=== PATIENT | male | born 1995 | race Hispanic/Latino ===

== ENCOUNTER 2021-10-12 20:24 | Inpatient (IN) | payer OTHER, SELFPAY ==
[~2021-10-12 20:24] MED LIST: Iopamidol-370 76% 500 ML 1 ML ONE
[2021-10-12 21:23] LABS: #Lymphocytes 1.1 thou/uL (1.20-3.40); #Monocytes 0.2 thou/uL (0.11-0.59); #Neutrophils 7.3 thou/uL (1.40-6.50); %Basophils 0.4 % (0.0-1.0); %Eosinophils 0.1 % (0.0-10.0); %Lymphocytes 12.7 % (21.0-51.0); %Monocytes 2.3 % (0.0-10.0); %Neutrophils 84.5 % (42.0-75.0); Hemoglobin 13.7 g/dL (14.0-18.0); Mean Corpuscular Hemoglobin 29.6 pg (27.0-31.0); Mean Corpuscular Volume 87.1 fL (78.0-98.0); Mean Platelet Volume 7.9 fL (7.4-10.4); Platelet Count 208 thou/uL (130-400); RBC Distribution Width 12.5 % (11.5-14.5); Red Blood Cell (RBC) Count 4.63 mill/uL (4.70-6.10); White Blood Cell (WBC) Count 8.7 thou/uL (4.8-10.8)
[2021-10-12 21:44] LABS: ALT (SGPT) 57 U/L (8-55); AST (SGOT) 88 U/L (5-34); Albumin 3.6 g/dL (3.5-5.0); Alkaline Phosphatase 62 U/L (40-110); Anion Gap 14 mmol/L (10-20); BUN (Urea Nitrogen) 6 mg/dL (8.9-20.6); Bilirubin, Total 0.6 mg/dL (0.2-1.2); Calc. Creatinine Clearance 0 mL/min (70-130); Calcium 8.9 mg/dL (7.8-10.44); Carbon Dioxide 29 mmol/L (22-29); Chloride 97 mmol/L (98-107); Glucose 107 mg/dL (70-105); Lipase 19 U/L (8-78); Potassium 3.7 mmol/L (3.5-5.1); Protein, Total 7.6 g/dL (6.0-8.3); Sodium 136 mmol/L (136-145)
[2021-10-12] MEDS ORDERED: Acetaminophen 500 MG TAB ONE (21:50)
[2021-10-12 22:04] LABS: CKMB 2.7 ng/mL (0-6.6)
[2021-10-12] MEDS ORDERED: Aspirin 325 MG TAB ONE (22:05)
[2021-10-12 23:07] LABS: SARS-CoV-2 NAA Rapid Test DETECTED (NotDetected)
[2021-10-12] MEDS ORDERED: Dexamethasone 4 MG TAB ONE (23:24)
[2021-10-12] MEDS ORDERED: Albuterol Sulfate 2.5 mg/3 ml Neb NEB PRN (23:46)
[2021-10-12] MEDS ORDERED: Nitroglycerin 0.4 MG TAB (25 Tab Bottle) SL PRN (23:46)
[2021-10-12] MEDS ORDERED: Ondansetron ODT 4 MG TAB PO PRN (23:51)
[2021-10-12] MEDS ORDERED: Senokot S 8.6-50 MG TAB PO PRN (23:51)
[2021-10-12] MEDS ORDERED: Ondansetron PF 4 MG/2 ML Vial IVP PRN (23:51)
[2021-10-12] MEDS ORDERED: Acetaminophen 325 MG TAB PO PRN (23:51)
[2021-10-13 00:54] VITALS: BMI 42.5
[2021-10-13] MEDS: Sodium Chloride 0.9% 1,000 ML IV SCH ×3 (01:00→22:48)
[2021-10-13 01:17] LABS: Troponin I 0.021 ng/mL (< 0.028)
[2021-10-13] MEDS: Benzonatate 100 MG CAP PO PRN (01:20)
[2021-10-13 03:26] LABS: #Basophils 0.1 thou/uL (0.0-0.2); #Lymphocytes 0.7 thou/uL (1.20-3.40); #Monocytes 0.1 thou/uL (0.11-0.59); #Neutrophils 7.7 thou/uL (1.40-6.50); %Basophils 0.8 % (0.0-1.0); %Eosinophils 0.1 % (0.0-10.0); %Monocytes 1.5 % (0.0-10.0); %Neutrophils 89.7 % (42.0-75.0); Hemoglobin 13.5 g/dL (14.0-18.0); Mean Corpuscular HGB CONC 33.1 g/dL (32.0-36.0); Mean Corpuscular Hemoglobin 29.2 pg (27.0-31.0); Mean Corpuscular Volume 88.2 fL (78.0-98.0); Mean Platelet Volume 7.8 fL (7.4-10.4); Platelet Count 211 thou/uL (130-400); RBC Distribution Width 12.6 % (11.5-14.5); Red Blood Cell (RBC) Count 4.61 mill/uL (4.70-6.10); White Blood Cell (WBC) Count 8.6 thou/uL (4.8-10.8)
[2021-10-13 03:45] LABS: Anion Gap 14 mmol/L (10-20); BUN (Urea Nitrogen) 7 mg/dL (8.9-20.6); Calc. Creatinine Clearance 268 mL/min (70-130); Calcium 8.8 mg/dL (7.8-10.44); Carbon Dioxide 28 mmol/L (22-29); Chloride 100 mmol/L (98-107); Glucose 108 mg/dL (70-105); Potassium 3.5 mmol/L (3.5-5.1); Sodium 138 mmol/L (136-145)
[2021-10-13 03:50] LABS: Troponin I 0.013 ng/mL (< 0.028)
[2021-10-13 04:19] LABS: Bacteria/HPF None Seen HPF (None Seen); Bilirubin Negative (Negative); Blood, Urine Negative (Negative); Clarity Clear (Clear); Glucose, Urine (Dipstick) Normal (Negative); Ketone, Urine Trace mg/dL (Negative); Leukocyte Negative Leu/uL (Negative); Nitrite Negative (Negative); Protein, Urine (Dipstick) Negative (Neg-Trace); RBC/HPF 0-3 HPF (0-3); Specific Gravity, Urine 1.027 (1.002-1.036); Squamous Epithelial None Seen HPF (0-3); Urobilinogen Normal mg/dL (Less than 2); WBC/HPF 0-3 HPF (0-3); pH, Urine 6.5 (5.0-9.0)
[2021-10-13 04:34] LABS: Urine Culture Reflex No No
[2021-10-13] MEDS: Enoxaparin Sodium 40 MG/0.4 ML SYRINGE SC SCH (08:27)
[2021-10-13] MEDS: Dexamethasone 4 MG TAB PO SCH ×2 (08:28→17:29)
[2021-10-13] MEDS: Zinc Sulfate 220 MG CAP PO SCH (08:29)
[2021-10-13] MEDS: Ascorbic Acid 500 mg Chewable Tablet PO SCH (08:29)
[2021-10-13] MEDS ORDERED: REMDESIVIR 200 MG in Sodium Chloride 0.9% 250 ML 210 ML IV SCH (08:30)
[2021-10-13] MEDS ORDERED: guaiFENesin/Codeine 200 mg/20 mg 10 ml Cup PO SCH (13:15)
[2021-10-13] MEDS: guaiFENesin/Codeine 200 mg/20 mg 10 ml Cup PO PRN (20:34)
[2021-10-14] MEDS: guaiFENesin/Codeine 200 mg/20 mg 10 ml Cup PO PRN (05:33)
[2021-10-14 06:05] LABS: ALT (SGPT) 101 U/L (8-55); AST (SGOT) 123 U/L (5-34); Albumin 3.2 g/dL (3.5-5.0); Alkaline Phosphatase 63 U/L (40-110); Anion Gap 13 mmol/L (10-20); BUN (Urea Nitrogen) 12 mg/dL (8.9-20.6); Bilirubin, Total 0.4 mg/dL (0.2-1.2); Calc. Creatinine Clearance 277 mL/min (70-130); Calcium 8.7 mg/dL (7.8-10.44); Carbon Dioxide 27 mmol/L (22-29); Chloride 103 mmol/L (98-107); Globulin 3.8 g/dL (2.4-3.5); Glucose 163 mg/dL (70-105); Potassium 3.9 mmol/L (3.5-5.1); Sodium 139 mmol/L (136-145)
[2021-10-14] MEDS: Enoxaparin Sodium 40 MG/0.4 ML SYRINGE SC SCH (09:21)
[2021-10-14] MEDS: Zinc Sulfate 220 MG CAP PO SCH (09:22)
[2021-10-14] MEDS: Dexamethasone 4 MG TAB PO SCH ×2 (09:22→16:40)
[2021-10-14] MEDS: Ascorbic Acid 500 mg Chewable Tablet PO SCH (09:23)
[2021-10-14] MEDS: REMDESIVIR 100 MG in Sodium Chloride 0.9% 250 ML 230 ML IV SCH (09:24)
[2021-10-15 05:27] LABS: ALT (SGPT) 146 U/L (8-55); AST (SGOT) 115 U/L (5-34); Albumin 3.3 g/dL (3.5-5.0); Alkaline Phosphatase 64 U/L (40-110); Anion Gap 12 mmol/L (10-20); BUN (Urea Nitrogen) 14 mg/dL (8.9-20.6); Bilirubin, Total 0.4 mg/dL (0.2-1.2); CRP (Inflammatory) 7.08 mg/dL (= or < 0.5); Calc. Creatinine Clearance 281 mL/min (70-130); Calcium 8.8 mg/dL (7.8-10.44); Carbon Dioxide 30 mmol/L (22-29); Chloride 104 mmol/L (98-107); Globulin 3.6 g/dL (2.4-3.5); Glucose 172 mg/dL (70-105); Potassium 3.7 mmol/L (3.5-5.1); Protein, Total 6.9 g/dL (6.0-8.3); Sodium 142 mmol/L (136-145)
[2021-10-15] MEDS: Zinc Sulfate 220 MG CAP PO SCH (07:49)
[2021-10-15] MEDS: Dexamethasone 4 MG TAB PO SCH ×2 (07:49→16:46)
[2021-10-15] MEDS: Ascorbic Acid 500 mg Chewable Tablet PO SCH (07:50)
[2021-10-15] MEDS: Enoxaparin Sodium 40 MG/0.4 ML SYRINGE SC SCH (07:50)
[2021-10-15] MEDS: REMDESIVIR 100 MG in Sodium Chloride 0.9% 250 ML 230 ML IV SCH (09:02)
[2021-10-15] MEDS: guaiFENesin/Codeine 200 mg/20 mg 10 ml Cup PO PRN ×2 (09:02→20:21)
[2021-10-16 05:54] LABS: ALT (SGPT) 121 U/L (8-55); AST (SGOT) 48 U/L (5-34); Albumin 3.1 g/dL (3.5-5.0); Alkaline Phosphatase 61 U/L (40-110); Anion Gap 11 mmol/L (10-20); BUN (Urea Nitrogen) 16 mg/dL (8.9-20.6); Bilirubin, Total 0.4 mg/dL (0.2-1.2); CRP (Inflammatory) 3.79 mg/dL (= or < 0.5); Calc. Creatinine Clearance 281 mL/min (70-130); Calcium 8.6 mg/dL (7.8-10.44); Carbon Dioxide 28 mmol/L (22-29); Chloride 104 mmol/L (98-107); Globulin 3.6 g/dL (2.4-3.5); Glucose 180 mg/dL (70-105); Protein, Total 6.7 g/dL (6.0-8.3); Sodium 139 mmol/L (136-145)
[2021-10-16] MEDS: Zinc Sulfate 220 MG CAP PO SCH (08:25)
[2021-10-16] MEDS: Ascorbic Acid 500 mg Chewable Tablet PO SCH (08:25)
[2021-10-16] MEDS: REMDESIVIR 100 MG in Sodium Chloride 0.9% 250 ML 230 ML IV SCH (08:25)
[2021-10-16] MEDS: Dexamethasone 4 MG TAB PO SCH ×2 (08:25→16:28)
[2021-10-16] MEDS: Enoxaparin Sodium 40 MG/0.4 ML SYRINGE SC SCH (08:25)
[2021-10-16] MEDS: Benzonatate 100 MG CAP PO PRN (08:30)
[2021-10-17 05:55] LABS: ALT (SGPT) 118 U/L (8-55); AST (SGOT) 35 U/L (5-34); Alkaline Phosphatase 59 U/L (40-110); Anion Gap 9 mmol/L (10-20); BUN (Urea Nitrogen) 17 mg/dL (8.9-20.6); Bilirubin, Total 0.4 mg/dL (0.2-1.2); Calc. Creatinine Clearance 288 mL/min (70-130); Calcium 8.2 mg/dL (7.8-10.44); Carbon Dioxide 31 mmol/L (22-29); Chloride 103 mmol/L (98-107); Globulin 3.3 g/dL (2.4-3.5); Glucose 183 mg/dL (70-105); Potassium 4.2 mmol/L (3.5-5.1); Protein, Total 6.3 g/dL (6.0-8.3); Sodium 139 mmol/L (136-145)
[2021-10-17] MEDS: Enoxaparin Sodium 40 MG/0.4 ML SYRINGE SC SCH (09:05)
[2021-10-17] MEDS: REMDESIVIR 100 MG in Sodium Chloride 0.9% 250 ML 230 ML IV SCH (09:05)
[2021-10-17] MEDS: Ascorbic Acid 500 mg Chewable Tablet PO SCH (09:05)
[2021-10-17] MEDS: Dexamethasone 4 MG TAB PO SCH (09:05)
[2021-10-17] MEDS: Zinc Sulfate 220 MG CAP PO SCH (09:06)
[2021-10-17 12:25] VITALS: BP 124/56; TEMP 97.8
== END 2021-10-17 15:43 | disposition home or self-care (01) | DRG 871 ==
LOC: ERS 20:24 → 2SW 23:28 → OBSVTOIN 10-13 07:30
PROVIDERS: ADMIT Student in an Organized Health Care Education/Training Program; ATTEND Internal Medicine
PROC: XW033E5 Introduction of Remdesivir Anti-infective into Peripheral Vein, Percutaneous Approach, New Technology Group 5 (ICD-10-PCS; principal; 2021-10-13)
PROC: 3E0333Z Introduction of Anti-inflammatory into Peripheral Vein, Percutaneous Approach (ICD-10-PCS; 2021-10-13)
PROC: 8E0ZXY6 Isolation (ICD-10-PCS; 2021-10-13)
DX: A41.89 Other specified sepsis (principal); U07.1 COVID-19; J12.82 Pneumonia due to coronavirus disease 2019; J96.01 Acute respiratory failure with hypoxia; Z68.41 Body mass index [BMI] 40.0-44.9, adult; E66.01 Morbid (severe) obesity due to excess calories; R74.01 Elevation of levels of liver transaminase levels; R79.89 Other specified abnormal findings of blood chemistry; R77.8 Other specified abnormalities of plasma proteins; Z88.0 Allergy status to penicillin; Z79.899 Other long term (current) drug therapy; Z82.49 Family history of ischemic heart disease and other diseases of the circulatory system
CPT/HCPCS: 0240U; 36415; 71045; 71275; 80048; 80053; 81001; 82553; 82728; 83690; 83735; 84484; 85025; 85379; 86140; 93005; J1650; J7050; J8540; Q9967